=== PATIENT | female | born 1955 | race Caucasian/White ===

== ENCOUNTER 2023-11-07 18:30 | Emergency (ER) | payer MEDICARE, OTHER | END 2023-11-07 19:53 | disposition home or self-care (01) | LOC: ERS 18:30 | DX: M54.50 Low back pain, unspecified (principal); M25.551 Pain in right hip; I10 Essential (primary) hypertension; Z79.899 Other long term (current) drug therapy | CPT/HCPCS: 72128; 72131 ==

== ENCOUNTER 2025-11-13 14:43 | Emergency (ER) | payer MEDICARE, OTHER ==
[2025-11-13] MEDS ORDERED: Dexamethasone 10 MG/ML VIAL ONE (17:02)
[2025-11-13] MEDS ORDERED: Famotidine/PF 20 mg/2ml Vial ONE (17:02)
[2025-11-13] MEDS ORDERED: Tranexamic Acid 1,000 MG/10 ML VIAL ONE (17:02)
[2025-11-13] MEDS ORDERED: diphenhydrAMINE 50 MG/ML VIAL ONE (17:02)
== END 2025-11-13 18:25 | disposition home or self-care (01) ==
LOC: ERS 14:43
DX: T78.3XXA Angioneurotic edema, initial encounter (principal); I10 Essential (primary) hypertension; Z79.899 Other long term (current) drug therapy
CPT/HCPCS: 70486; J1100; J1200; J1308; 96374; 96375